=== PATIENT | male | born 1975 | race Caucasian/White ===

== ENCOUNTER 2017-08-12 13:20 | Emergency (ER) | payer SELFPAY ==
[2017-08-12 13:48] VITALS: RESP 18
--- NOTE | 2017-08-12 13:53 | C.PDOC ---
History Of Present Illness Patient is a 42 y/o M presenting with anxiety. 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 He reports that he went to a psychiatrist who prescribed prozac and has been alcohol and drug free for almost 6 years ago. He reports that 1 month ago his sister started to give him oxycodone for chronic back pain. He reports that he took an oxycodone at 1am last night. He reports that he woke up at 6am (8 hours ago) and felt anxious, chest tightness and feeling that he could not catch his breath. He is requesting something to remove the oxycodone. His girlfriend reports that he was crying and pacing the room. He denies suicidal or homicidal ideation but reports that he feels anxious. He reports same symptoms as 6 years ago when he was using. Denies cocaine use. Denies htn, dm, family hx of sudden cardiac . Time Seen by Provider: 08/12/17 13:40 Chief Complaint (Nursing): Chest Pain Past Medical History Vital Signs: Last Vital Signs Temp 98.5 F 08/12/17 17:23 Pulse 78 08/12/17 17:23 Resp 18 08/12/17 17:23 BP 128/78 08/12/17 17:23 Pulse Ox 100 08/12/17 17:23 Family History: States: No Known Family Hx Review Of Systems Constitutional: Negative for: Fever, Chills Cardiovascular: Positive for: Other (chest tightness). Negative for: Chest Pain , Palpitations, Orthopnea, Edema, Light Headedness Respiratory: Negative for: Cough, Shortness of Breath, Hemoptysis, SOB with Excertion, Pleuritic Pain, Sputum, Wheezing Gastrointestinal: Negative for: Nausea, Vomiting, Abdominal Pain, Constipation Neurological: Negative for: Weakness, Numbness Psych: Positive for: Anxiety Physical Exam - Physical Exam Appears: Well, Non-toxic, Agitated (anxious) Skin: Normal Color, Warm, Dry Head: Atraumatic, Normacephalic Eye(s): bilateral: Normal Inspection, PERRL, EOMI Neck: Normal, Supple Chest: Symmetrical Cardiovascular: Rhythm Regular Respiratory: Normal Breath Sounds, No Rales, No Rhonchi, No Wheezing Gastrointestinal/Abdominal: Soft, No Tenderness, No Mass, No Distention Back: Normal Inspection Extremity: Normal ROM, No Pedal Edema Neurological/Psych: Oriented x3, Normal Cranial Nerves, Normal Motor, Normal Sensation Gait: Steady ED Course And Treatment - Laboratory Results Result Diagrams: 08/12/17 14:44 08/12/17 14:44 O2 Sat by Pulse Oximetry: 98 Medical Decision Making Medical Decision Making: EKG shows NSR at 78 bpm with LBBB. No prior for comparison. No Sgarbossa's criteria. Chest tightness appears more related to anxiety and due to onset >8 hours ago, will get cxay and trop x 1 to r/o. Will consult psych and give IVF 2:18PM Psych evaluated. Is not homicidal or suicidal. Apears intoxicated with strange affect. Concerning for intoxication. UDS pending. Gave outpatient referral to [facility] 4:35PM Labs including trop and d-dimer negative. UDS negative. Alcohol negative. Patient has been sleeping in ED. When awoken he reports that all symptoms have resolved. Reports symptoms were likely triggered by oxycodone use and sleeping alone after his driver wheelchair which he reports gives him anxiety. He reports that he will follow-up with psychiatry and will follow-up with PMD for abnormal ekg. Disposition - Disposition Referrals: [facility] [Outside] Disposition: HOME/ ROUTINE Disposition Time: 17:11 Condition: GOOD Additional Instructions: Follow-up with [facility] as referred by psychiatry. Follow-up with PMD or [facility] within 2 days for abnormal ekg for cardiology referral. Return to ED if condition worsens. Forms: [facility] (Italian), Work Excuse - Clinical Impression Clinical Impression: Abnormal EKG, Anxiety
[2017-08-12] MEDS ORDERED: Sodium Chloride 0.9% 500 ML IV ONE (13:56)
[2017-08-12 14:47] LABS: BASO % 0.5 % (0.0-2.0); EOS # 0.1 K/uL (0.0-0.7); EOS % 0.7 % (0.0-4.0); HEMATOCRIT 42.8 % (35.0-51.0); LYMPH # 0.8 K/uL (1.0-4.3); LYMPH % 9.6 % (20.0-40.0); MEAN CELL VOLUME 88.2 fL (80.0-94.0); MEAN CORPUSCULAR HEMOGLOBIN 29.4 pg (27.0-31.0); MEAN CORPUSCULAR HGB CONC 33.3 g/dL (33.0-37.0); MEAN PLATELET VOLUME 8.9 fL (7.2-11.7); MONO # 0.3 K/uL (0.0-0.8); MONO % 4.1 % (0.0-10.0); PLATELET COUNT 191 K/uL (130-400); RED CELL DISTRIBUTION WIDTH 13.2 % (11.5-14.5); WHITE BLOOD COUNT 8.4 K/uL (4.8-10.8)
[2017-08-12 15:22] LABS: ALB/GLOB RATIO 1.4 (1.0-2.1); ALCOHOL SERUM < 10 mg/dl (0-10); ALKALINE PHOSPHATASE 64 U/L (38-126); ALT/SGPT 47 U/L (21-72); AST/SGOT 49 U/L (17-59); BILIRUBIN,TOTAL 0.5 mg/dL (0.2-1.3); BLOOD UREA NITROGEN 19 mg/dL (9-20); CALCIUM 8.4 mg/dl (8.6-10.4); CARBON DIOXIDE 30 mmol/L (22-30); CHLORIDE 101 mmol/L (98-107); GFR AFRICAN-AMERICAN > 60; GLUCOSE,RANDOM 102 mg/dL (75-110); POTASSIUM 4.1 mmol/L (3.6-5.2); SODIUM 139 mmol/L (132-148); TOTAL PROTEIN 7.1 g/dL (6.3-8.3)
[2017-08-12 15:23] LABS: RBC URINE < 1 /hpf (0-3); URINE BILIRUBIN NEGATIVE (NEGATIVE); URINE BLOOD NEGATIVE (NEGATIVE); URINE COLOR Yellow (YELLOW); URINE GLUCOSE (UA) NORMAL (Normal); URINE KETONE 1+ mg/dL (NEGATIVE); URINE LEUKOCYTE ESTERASE NEG Leu/uL (Negative); URINE PROTEIN NEGATIVE (NEGATIVE); URINE UROBILINOGEN NORMAL mg/dL (0.2-1.0); WBC URINE < 1 /hpf (0-5)
--- NOTE | 2017-08-12 15:30 | RAD ---
HISTORY: chest pain, shortness of breath COMPARISON: None available. TECHNIQUE: Chest, one view. FINDINGS: Examination limited by habitus. LUNGS: No focal consolidation. Please note that chest x-ray has limited sensitivity for the detection of pulmonary masses. PLEURA: No significant pleural effusion identified. No definite pneumothorax . CARDIOVASCULAR: The cardiomediastinal silhouette appears within normal limits of size. OSSEOUS STRUCTURES: No acute osseous abnormality identified. VISUALIZED UPPER ABDOMEN: Unremarkable. OTHER FINDINGS: None. IMPRESSION: No focal consolidation, significant pleural effusion, or definite pneumothorax identified.
[2017-08-12 15:35] LABS: NEUTROPHIL 83 % (50-75); TOTAL CELLS COUNTED 100
[2017-08-12 17:25] VITALS: BP 128/78; PULSE 78; TEMP 98.5
[2017-08-12 21:47] VITALS: O2SAT 98
--- NOTE | 2017-08-14 22:53 | CARD ---
APPROVED REPORT EKG Measurement Heart [id number] <Conclusion> Normal sinus rhythm Left bundle branch block Abnormal ECG
== END 2017-08-12 17:28 | disposition home or self-care (01) ==
LOC: C.ER 13:20
DX: F41.9 Anxiety disorder, unspecified (principal); R94.31 Abnormal electrocardiogram [ECG] [EKG]
CPT/HCPCS: 71010; 80053; 81001; 82550; 84484; 85025; 85378; 93005; 99285; G0480